=== PATIENT | female | born 1960 | race Caucasian/White ===

== ENCOUNTER 2019-10-11 23:32 | Observation (INO) ==
[2019-10-11] MEDS ORDERED: Isovue-370 500 ML BOTTLE IVP ONE (23:45)
[2019-10-12 00:18] LABS: Hematocrit 46.3 % (35.3-44.9); Hemoglobin 14.7 g/dL (11.5-15.4); Mean Corpuscular HGB Conc 31.7 g/dL (31.6-35.5); Mean Corpuscular Hemoglobin 27.4 pg (28.0-33.3); Mean Corpuscular Volume 86.4 fL (83.0-100.0); Mean Platelet Volume 10.1 fL (9.4-12.4); Platelet Count 394 K/mcL (140-400); Red Blood Count 5.36 M/mcL (3.82-4.97); Red Cell Distribution Width 13.3 % (11.5-14.5); White Blood Count 10.2 K/mcL (4.3-11.1)
[2019-10-12 00:19] LABS: INR 0.9; Prothrombin Time 10.7 Seconds (9.4-12.1)
[2019-10-12 00:21] LABS: Activated Partial Thrombo Time 31.9 Seconds (26.0-36.0)
[2019-10-12 00:28] LABS: Bilirubin,Urine Negative (Negative); Blood,Urine Trace (Negative); Clarity,Urine Clear (Clear); Color,Urine Yellow (Yellow); Glucose,Urine (UA) Normal (Normal); Ketones,Urine Negative (Negative); Leukocyte Esterase,Urine Negative (Negative); Nitrite,Urine Negative (Negative); Protein,Urine Negative (Neg-Trace); Specific Gravity,Urine 1.016 (1.010-1.025); Urobilinogen,Urine Normal (Normal)
[2019-10-12 00:30] LABS: Bacteria,Urine None Seen per hpf (None-Few); Hyaline Casts,Urine None Seen per lpf (None-Few); Squamous Epithelial Cell,Urine Many per lpf (None-Few); WBC,Urine 0-3 per hpf (0-3)
[2019-10-12 00:33] LABS: BUN/Creatinine Ratio 18 (6-26); Blood Urea Nitrogen 13 mg/dL (8-23); Calcium 9.8 mg/dL (8.6-10.3); Carbon Dioxide 24 mEq/L (23-29); Chloride 106 mEq/L (98-107); Glucose 120 mg/dL (70-105); Osmolality,Calculated 289 (280-300); Potassium 3.4 mEq/L (3.5-5.1); Sodium 139 mEq/L (136-145); eGFR For African Americans > 60 (> 60); eGFR For Non-African Americans > 60 (> 60)
[2019-10-12 00:34] LABS: Troponin I < 0.03 ng/mL (< 0.04)
[2019-10-12] MEDS ORDERED: Aspirin 81 MG TAB.CHEW PO STA (01:12)
[2019-10-12] MEDS ORDERED: Ondansetron 4 MG/2 ML VIAL IVP PRN (03:32)
[2019-10-12] MEDS ORDERED: *HR* HYDROcodone/Acet 5/325 mg TABLET PO PRN (03:32)
[2019-10-12] MEDS ORDERED: Naloxone 0.4 MG/ML INJ IVP PRN (03:32)
[2019-10-12 06:10] LABS: Basophils # 0.1 K/mcL (0.0-0.2); Basophils % 0.9 %; Eosinophils # 0.1 K/mcL (0.0-0.6); Eosinophils % 0.8 %; Hematocrit 44.7 % (35.3-44.9); Hemoglobin 14.6 g/dL (11.5-15.4); Immature Granulocytes % 0.2 % (0-4); Lymphocytes # 3.4 K/mcL (0.6-4.6); Lymphocytes % 36.4 %; Mean Corpuscular HGB Conc 32.7 g/dL (31.6-35.5); Mean Corpuscular Hemoglobin 28.1 pg (28.0-33.3); Mean Corpuscular Volume 86.1 fL (83.0-100.0); Mean Platelet Volume 10.4 fL (9.4-12.4); Monocytes # 0.5 K/mcL (0.0-1.3); Monocytes % 4.8 %; Neutrophils # 5.3 K/mcL (1.6-8.9); Platelet Count 353 K/mcL (140-400); Red Blood Count 5.19 M/mcL (3.82-4.97); Red Cell Distribution Width 13.3 % (11.5-14.5); Segmented Neutrophils % 56.9 %; White Blood Count 9.3 K/mcL (4.3-11.1)
[2019-10-12 06:15] LABS: Prothrombin Time 11.5 Seconds (9.4-12.1)
[2019-10-12] MEDS: *HR* Heparin 5,000 UNIT/ML VIAL SQ SCH ×2 (06:38→17:45)
[2019-10-12 06:46] LABS: BUN/Creatinine Ratio 17 (6-26); Blood Urea Nitrogen 11 mg/dL (8-23); Calcium 9.9 mg/dL (8.6-10.3); Carbon Dioxide 24 mEq/L (23-29); Chloride 107 mEq/L (98-107); Cholesterol 134 mg/dL (< 200); Glucose 92 mg/dL (70-105); HDL Cholesterol 45 mg/dL (40-59); LDL Cholesterol,Calculated 75 mg/dL (0-99); Magnesium 2.1 mg/dL (1.6-2.6); Osmolality,Calculated 291 (280-300); Potassium 3.7 mEq/L (3.5-5.1); Sodium 141 mEq/L (136-145); Triglycerides 71 mg/dL (< 150); eGFR For African Americans > 60 (> 60); eGFR For Non-African Americans > 60 (> 60)
[2019-10-12] MEDS ORDERED: Aspirin Enteric Coated 81 MG Tablet PO SCH (09:00)
[2019-10-12] MEDS: Acetaminophen 325 MG TABLET PO PRN (11:22)
[2019-10-12] MEDS ORDERED: hydrALAZINE 25 MG TABLET PO PRN (11:47)
[2019-10-13] MEDS: *HR* Heparin 5,000 UNIT/ML VIAL SQ SCH (05:07)
[2019-10-13] MEDS ORDERED: Aspirin 325 MG TABLET PO SCH (09:00)
[2019-10-13] MEDS: Acetaminophen 325 MG TABLET PO PRN (09:06)
[2019-10-13 10:54] VITALS: BP 133/84
== END 2019-10-13 12:26 | disposition home or self-care (01) ==
LOC: 3BNU 23:32 → EMEROOARM 23:32 → SUATTDRO 10-12 02:28 → 3BNU 10-12 03:01
PROVIDERS: ADMIT Student in an Organized Health Care Education/Training Program; ATTEND Student in an Organized Health Care Education/Training Program